=== PATIENT | male | born 1970 | race Caucasian/White ===

== ENCOUNTER 2016-08-28 23:25 | Emergency (ER) | payer OTHER ==
[2016-08-28 23:35] VITALS: BP 123/73
--- NOTE | 2016-08-28 23:37 | EDM.PDOC ---
ED HISTORY OF PRESENT ILLNESS - General Chief Complaint: Respiratory Problem Stated Complaint: COUGH Time Seen by Provider: 08/28/16 23:37 Source of Information: Reports: Patient History Limitations: Reports: No limitations - History of Present Illness INITIAL COMMENTS - FREE TEXT/NARRATIVE: 46 year old male presents reports to the ED with a one week of illness. Fever and chills. Rigors at times. paroxysmal minimally productive coguh. Weakness. Poor appetite. initially experienced high fever and diffuse mylagia and headache suggestive of Influenza. Has not been able to work much this last week. Cough is worse when he lies down. Symptom Onset Date: 08/22/16 Timing/Duration: Reports: Day(s):, Constant, Getting worse, Gradual onset Severity: moderate Location, General: Reports: chest (paroxysmal minimally productive cough. ), generalized (myalgia with fever and chills. ) Improves with: Reports: None Worsens with: Reports: Other (lying down. ) Context, General: Denies: Activity, Exercise, Lifting, Sick contact, Trauma, Other Associated Symptoms (General): Reports: cough, diaphoresis, fever/chills, headaches, loss of appetite, malaise, nausea/vomiting (vomited once due to the severe cough. ), weakness. 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: NSAIDS (motrin) - Related Data Allergies/ADRs: Allergies Allergy/AdvReac Type Severity Reaction Status Date / Time No Known Allergies Allergy Verified 08/28/16 23:35 Home Meds: Home Meds Hydrocodone/Chlorphen P-Stirex [Tussionex Pennkinetic Susp] 5 ml PO Q12H PRN # 60 ml 08/29/16 [Rx] Levofloxacin [Levaquin] 500 mg PO Q24H #9 tablet 08/29/16 [Rx] Social & Family History - Living Situation & Occupation Living situation: Reports: Occupation: employed ED ROS GENERAL - Review of Systems Review Of Systems: See Below Constitutional: Reports: fever, chills, malaise, weakness, fatigue, decreased appetite. Denies: weight loss HEENT: Reports: Throat pain. Denies: Ear pain Respiratory: Reports: Shortness of Breath, Cough (paroxysmal cough ). Denies: Wheezing, Pleuritic Chest Pain, Sputum, Hemoptysis Cardiovascular: Reports: Chest pain (central upper chest from coughing. ), Dyspnea on exertion. Denies: Blood pressure problem, Claudication, Edema, Lightheadedness, Orthopnea, Palpitations Endocrine: Reports: fatigue GI/Abdominal: Reports: Decreased appetite. Denies: Abdominal pain, Black stool , Bloody stool, Constipation, Diarrhea, Difficulty swallowing, Distension, Flatus, Hematemesis, Hematochezia, Melena : Reports: no symptoms Musculoskeletal: Reports: muscle pain ( generalized myalgia.) Skin: Reports: no symptoms Neurological: Reports: No Symptoms Psychiatric: Reports: No symptoms Hematologic/Lymphatic: Reports: no symptoms Immunologic: Reports: no symptoms ED EXAM, GENERAL - Physical Exam Exam: See Below Exam Limited By: No limitations General Appearance: alert, other (warm to palpation. ) Eye Exam: bilateral eye: normal inspection Ears: normal TMs Throat/Mouth: Normal inspection, Normal lips, Normal teeth, Normal oropharynx Head: atraumatic, normocephalic Neck: normal inspection, supple, non-tender, full range of motion. No: lymphadenopathy (L), lymphadenopathy (R) Respiratory/Chest: no respiratory distress, no accessory muscle use, chest non- tender, rhonchi (mild LLL ). No: decreased breath sounds, wheezing, stridor Cardiovascular: normal peripheral pulses, regular rate, rhythm, no edema, no gallop, no murmur, no rub Peripheral Pulses: 2+: posterior tibial (L), posterior tibial (R), dorsalis pedis (L), dorsalis pedis (R) GI/Abdominal: normal bowel sounds, soft, non tender, no organomegaly, no distention, no abnormal bruit Back Exam: normal inspection, full range of motion. No: CVA tenderness (L), CVA tenderness (R) Extremities: normal inspection, normal range of motion, non-tender, no pedal edema, normal capillary refill Neurological: alert, oriented, CN II-XII intact, normal cognition, normal gait Course - Vital Signs Last Recorded V/S: Last Vital Signs Temp 36.4 C 08/28/16 23:32 Pulse 97 08/28/16 23:32 Resp 18 08/28/16 23:32 BP 123/73 08/28/16 23:32 Pulse Ox 96 08/28/16 23:32 - Orders/Labs/Meds Orders: Active Orders 24 hr Category Date Time Status Chest 1V Frontal [CR] Stat Exams 08/28/16 23:43 Taken CBC WITH MANUAL DIFF [HEME] Stat Lab 08/29/16 00:10 Results CULTURE BLOOD [BC] Stat Lab 08/29/16 00:25 Received CULTURE BLOOD [BC] Stat Lab 08/29/16 00:36 Received Blood Culture x2 Reflex Set [OM.PC] Stat Oth 08/29/16 00:07 Ordered Labs: Laboratory Tests 08/29/16 08/29/16 08/29/16 Range/Units 00:10 00:10 00:10 Neutrophils % (Manual) 56 (40-60) % Band Neutrophils % 5 (0-10) % Lymphocytes % (Manual) 30 (20-40) % Atypical Lymphs % 0 % Monocytes % (Manual) 7 (2-10) % Eosinophils % (Manual) 2 (0.8-7.0) % Basophils % (Manual) 0 L (0.2-1.2) Platelet Estimate Adequate RBC Morph Comment Normal Sodium 138 (136-145) mEq/L Potassium 3.4 L (3.5-5.1) mEq/L Chloride 103 (98-107) mEq/L Carbon Dioxide 24 (21-32) mEq/L Anion Gap 14.4 (5-15) BUN 18 (7-18) mg/dL Creatinine 1.2 (0.7-1.3) mg/dL Est Cr Clr Drug Dosing 80.18 mL/min Estimated GFR (MDRD) > 60 (>60) mL/min BUN/Creatinine Ratio 15.0 (14-18) Glucose 108 H (74-106) mg/dL Lactic Acid 0.8 (0.4-2.0) mmol/L Calcium 8.4 L (8.5-10.1) mg/dL Total Bilirubin 0.5 (0.2-1.0) mg/dL AST 14 L (15-37) U/L ALT 15 L (16-63) U/L Alkaline Phosphatase 73 (46-116) U/L C-Reactive Protein 7.5 H* (<1.0) mg/dL Total Protein 7.1 (6.4-8.2) g/dl Albumin 3.4 (3.4-5.0) g/dl Globulin 3.7 gm/dL Albumin/Globulin Ratio 0.9 L (1-2) Meds: Medications Discontinued Medications Generic Name Dose Route Start Last Admin Trade Name Dex PRN Reason Stop Dose Admin Dextrose/Sodium Chloride Confirm 08/29/16 00:17 Dextrose 5%-Normal Saline Administered 08/29/16 00:18 Dose 1,000 mls @ as directed .ROUTE .STK-MED ONE Levofloxacin/Dextrose Confirm 08/29/16 00:43 Levaquin In D5w 750 Mg/150 Ml Administered 08/29/16 00:44 Dose 150 mls @ as directed IV .STK-MED ONE Dextrose/Sodium Chloride 1,000 mls @ 999 mls/hr 08/29/16 00:30 Dextrose 5%-Normal Saline IV ASDIRECTED [facility] Levofloxacin/Dextrose 750 mg/ 150 mls @ 100 mls/hr 08/29/16 00:20 Premix IV 08/29/16 01:49 ONETIME ONE Promethazine HCl/Codeine Confirm 08/29/16 00:05 Phenergan With Codeine Administered 08/29/16 00:06 Dose 5 ml .ROUTE .STK-MED ONE Promethazine HCl/Codeine Confirm 08/29/16 00:08 Phenergan With Codeine Administered 08/29/16 00:09 Dose 10 ml .ROUTE .STK-MED ONE - Radiology Interpretation Free Text/Narrative:: 46 year old male presents to the ED at his `s request. She is tired of his paroxysmal cough. He has been ill for about one week. Fever and chills and rigors at onset of illness. Headache and generalized myalgia. Decreased appetite. Everyone in the house except his has been ill. Influenza? He did have a flu shot. Plan ;I can hear some rhonchi LLL . CXR and influenza screen to be done. - Re-Assessments/Exams Free Text/Narrative Re-Assessment/Exam: 08/29/16 00:10: CXR reveals a rather extensive pneumonia LLL. Therefore septic workup to be done. Blood cultures x 2. Levaquin 750mg IV ordered. IV D5 N/S at 999mls/hr. 08/29/16 01:56: Any.[employer] Tech system is down. Labs are therefore coming back piecemeal in a different format. Total white count was 8.43 hemoglobin 13.8 hematocrit of 39.6 platelets 283. Differential is 56% neutrophils and 5% bands. Chemistry showed a sodium of 138 potassium of 3.4 chloride 1043 bicarbonate 24 glucose 108 CRP elevated at 7.5. Patient is currently receiving Levaquin which should be done around 0235 hours. Influenza screen was negative. 08/29/16 02:50: He has completed his Levaquin 750 mg IV. He'll be discharged on Levaquin 500 milligrams once daily at bedtime for further 9 days to clear pneumonia. Tussionex cough syrup 5 mils every 12 hours when necessary for cough relief. Continue Motrin 600 mg every 6 hours when necessary for fever and headache and body ache relief. Advised off work until next September 04. Advised repeat chest x-ray be done in about 2 weeks' time to make sure the pneumonia has cleared. Departure - Departure Time of Disposition: 03:00 Disposition: Home, Self-Care 01 Condition: fair Clinical Impression: Pneumonia Qualifiers: Pneumonia type: due to unspecified organism Laterality: left Lung location: lower lobe of lung Qualified Code(s): J18.1 - Lobar pneumonia, unspecified organism Prescriptions: Hydrocodone/Chlorphen P-Stirex [Tussionex Pennkinetic Susp] 5 ml PO Q12H PRN # 60 ml PRN Reason: cough relief. Levofloxacin [Levaquin] 500 mg PO Q24H #9 tablet Referrals: Ailny Daniel, [employer] [Primary Care Provider] - Forms: ED Department Discharge Additional Instructions: Evaluation in the emergency room today in regards to persistent fever chills headache and paroxysmal cough for over a week. Initially it sounded like you were experiencing influenza symptoms and influenza screen was collected. He would prove negative for influenza. Chest x-ray done however showed it a left lower lobe are pneumonia. He was therefore treated with intravenous Levaquin 750 mg IV. You're discharged on Levaquin 500 mg once daily at bedtime for further 9 days to clear up pneumonia. Continue Motrin 600 mg every 6 hours needed for fever and body ache or headache relief. Plenty of fluids and diet as able. Off work until September 04. Tussionex cough syrup 5 mils every 12 hours as needed for cough relief. Suggest followup with your provider in 14 days time for repeat chest x-ray to make sure the pneumonia has resolved. - My Orders Last 24 Hours: My Active Orders 08/28/16 23:43 Chest 1V Frontal [CR] Stat 08/29/16 00:07 Blood Culture x2 Reflex Set [OM.PC] Stat 08/29/16 00:10 CBC WITH MANUAL DIFF [HEME] Stat 08/29/16 00:25 CULTURE BLOOD [BC] Stat 08/29/16 00:36 CULTURE BLOOD [BC] Stat - Assessment/Plan Last 24 Hours: My Active Orders 08/28/16 23:43 Chest 1V Frontal [CR] Stat 08/29/16 00:07 Blood Culture x2 Reflex Set [OM.PC] Stat 08/29/16 00:10 CBC WITH MANUAL DIFF [HEME] Stat 08/29/16 00:25 CULTURE BLOOD [BC] Stat 08/29/16 00:36 CULTURE BLOOD [BC] Stat
[2016-08-29] MEDS ORDERED: Codeine/Promethazine 10-6.25 MG/5 ML Syrup 5 ML UD Cup ONE ×3 (00:05→00:11)
[2016-08-29] MEDS ORDERED: Dextrose 5%-0.9% NaCl 1,000 ML ONE (00:17)
[2016-08-29] MEDS ORDERED: Levofloxacin/Dextrose 5%-Water 750 MG in Premix Bag 1 BAG IV ONE (00:20)
[2016-08-29] MEDS ORDERED: Dextrose 5%-0.9% NaCl 1,000 ML IV SCH (00:30)
[2016-08-29] MEDS ORDERED: Levofloxacin/Dextrose 5%-Water 150 ML IV ONE ×2 (00:42→00:43)
[2016-08-29] MEDS ORDERED: Dextrose 5%-0.9% NaCl 1,000 ML IV ONE (00:42)
--- NOTE | 2016-08-29 09:12 | CR ---
Chest: Portable view of the chest was obtained. Comparison: No previous study. Increased density identified within the left mid and lower lung. Small nodule noted within the right lung base either due to granuloma or vessel on end. Lungs otherwise are clear. Heart size and mediastinum are normal. Bony structures are grossly intact. Impression: 1. Increased density within left mid and lower lung most likely representing pneumonia. 2. Small nodule within the right lung base either due to vessel on end or granuloma. Diagnostic code #3
== END 2016-08-29 02:30 | disposition home or self-care (01) ==
LOC: JD.ED 23:25
DX: J18.1 Lobar pneumonia, unspecified organism (principal)
CPT/HCPCS: 36415; 71010; 80053; 83605; 85025; 86140; 87040; 87804; 96365; 99283; A9270; J1956; J7042; 99284